=== PATIENT | female | born 1955 | race Two or more races ===

== ENCOUNTER 2020-04-29 15:54 | Observation (INO) | payer MEDICARE, OTHER ==
--- NOTE | 2020-04-29 16:12 | ED ---
General Adult HPI - General Chief complaint: GI Bleed Stated complaint: Vomiting blood Time Seen by Provider: 04/29/20 16:10 Source: patient Mode of arrival: ambulatory Limitations: no limitations - History of Present Illness Initial comments: Patient presents to the ED complaining of having about 3-4 bouts of hematemesis since yesterday. Patient also states that she has had upper abdominal pain since yesterday, and she states that she had a small amount of blood streaking in her stool today. Patient states that she has a history of cardiac stent placement, and she states that she takes medication for her stents, but she cannot recall the names. Patient cannot tell me if she takes any anticoagulant medication. Patient also admits to having a cholecystectomy and hysterectomy in the past. Patient states that she is currently visiting from out of town, and she states that her primary care provider is in [place]. Patient denies history of GI bleed, excessive NSAID or aspirin use, alcohol use/abuse, illicit drug use, trauma or injury, fever or chills, headache, chest pain, dyspnea, cough or cold symptoms palpitations, dizziness, back or flank pain, diarrhea or constipation, melena, dysuria/hematuria/urinary frequency/urinary symptoms, or any other symptoms or complaints. - Related Data Home Medications Medication Instructions Recorded Confirmed No Known Home Medications 04/29/20 04/29/20 Allergies Allergy/AdvReac Type Severity Reaction Status Date / Time No Known Allergies Allergy Verified 04/29/20 17:23 Review of Systems ROS Statement: Those systems with pertinent positive or pertinent negative responses have been documented in the HPI. ROS Other: All systems not noted in ROS Statement are negative. Past Medical History Past Medical History: Cancer, Liver Disease, Myocardial Infarction ([place]), Pneumonia, Seizure Disorder Additional Past Medical History / Comment(s): Cancer, ulcer, History of Any Multi-Drug Resistant Organisms: C-DIFF Past Surgical History: Adenoidectomy, Appendectomy, Bowel Resection, Cholecystectomy, Heart Catheterization With Stent, Tonsillectomy Past Psychological History: No Psychological Hx Reported Smoking Status: Former smoker Past Alcohol Use History: None Reported Past Drug Use History: None Reported General Exam Limitations: no limitations General appearance: alert, in no apparent distress Head exam: Present: atraumatic, normocephalic Eye exam: Present: normal appearance, EOMI ENT exam: Present: normal oropharynx, mucous membranes moist Neck exam: Present: other (Trachea is in midline) Respiratory exam: Present: normal lung sounds bilaterally. Absent: respiratory distress, wheezes, rales, rhonchi, stridor Cardiovascular Exam: Present: regular rate, normal rhythm, normal heart sounds, other (Normal radial pulses bilaterally) GI/Abdominal exam: Present: soft, normal bowel sounds, other (Mild epigastric tenderness). Absent: distended, guarding, rebound Rectal exam: Present: normal inspection, normal rectal tone, other (There was no significant stool in the rectal vault; ED RN Pretty Sanchez assisted with rectal exam). Absent: tenderness Extremities exam: Absent: pedal edema Back exam: Absent: CVA tenderness (R), CVA tenderness (L) Neurological exam: Present: alert, oriented X3. Absent: motor sensory deficit Psychiatric exam: Present: normal affect, normal mood Skin exam: Present: warm, dry, intact, normal color Course Vital Signs 04/29/20 04/29/20 15:58 18:27 Temperature 98.8 F Pulse Rate 90 79 Respiratory 16 16 Rate Blood Pressure 143/76 149/69 O2 Sat by Pulse 97 96 Oximetry - Reevaluation(s) Reevaluation #1: 04/29/20 18:33 Case, H&P, test results and ED management thus far were discussed with Dr. José Miguel valdez. He accepts hospital admission. He agrees with GI consultation. He has no further recommendations at this time. 04/29/20 18:41 Patient has not any vomiting while in the ED, but she continues to complain of having upper abdominal pain. Patient's abdomen remains soft and without any surgical signs on examination. Patient is aware of her test results, and she agrees with hospital admission at this time. Medical Decision Making - Medical Decision Making Patient has not had any vomiting/hematemesis while in the ED. Patient's has a soft abdominal exam. Patient's hemoglobin is WNL at 15.7, and she has hemodynamic stable. Patient is afebrile and without leukocytosis. Patient's rectal exam is guaiac negative. Still, given the patient's reported multiple bouts of hematemesis, and given CT finding of edema around the patient's duodenum, will admit the patient to the hospital for monitoring and GI evaluation. Dr. Rubi has accepted hospital admission. - Lab Data Result diagrams: 04/29/20 16:35 04/29/20 16:35 Lab Results 04/29/20 04/29/20 04/29/20 Range/Units 16:23 16:23 16:35 WBC 9.4 (3.8-10.6) k/uL RBC 4.68 (3.80-5.40) m/uL Hgb 15.7 (11.4-16.0) gm/dL Hct 45.8 (34.0-46.0) % MCV 97.9 (80.0-100.0) fL MCH 33.6 (25.0-35.0) pg MCHC 34.3 (31.0-37.0) g/dL RDW 12.8 (11.5-15.5) % Plt Count 290 (150-450) k/uL MPV 6.8 Neutrophils % 71 % Lymphocytes % 19 % Monocytes % 5 % Eosinophils % 2 % Basophils % 2 % Neutrophils # 6.7 (1.3-7.7) k/uL Lymphocytes # 1.8 (1.0-4.8) k/uL Monocytes # 0.5 (0-1.0) k/uL Eosinophils # 0.2 (0-0.7) k/uL Basophils # 0.2 (0-0.2) k/uL PT (9.0-12.0) sec INR (<1.2) APTT (22.0-30.0) sec Sodium (137-145) mmol/L Potassium (3.5-5.1) mmol/L Chloride (98-107) mmol/L Carbon Dioxide (22-30) mmol/L Anion Gap mmol/L BUN (7-17) mg/dL Creatinine (0.52-1.04) mg/dL Est GFR (CKD-EPI)AfAm (>60 ml/min/1.73 sqM) Est GFR (CKD-EPI)NonAf (>60 ml/min/1.73 sqM) Glucose (74-99) mg/dL Plasma Lactic Acid Sourav 1.9 (0.7-2.0) mmol/L Calcium (8.4-10.2) mg/dL Total Bilirubin (0.2-1.3) mg/dL AST (14-36) U/L ALT (4-34) U/L Alkaline Phosphatase (38-126) U/L Total Protein (6.3-8.2) g/dL Albumin (3.5-5.0) g/dL Lipase (23-300) U/L Stool Occult Blood Negative (Negative) 04/29/20 04/29/20 Range/Units 16:35 16:35 WBC (3.8-10.6) k/uL RBC (3.80-5.40) m/uL Hgb (11.4-16.0) gm/dL Hct (34.0-46.0) % MCV (80.0-100.0) fL MCH (25.0-35.0) pg MCHC (31.0-37.0) g/dL RDW (11.5-15.5) % Plt Count (150-450) k/uL MPV Neutrophils % % Lymphocytes % % Monocytes % % Eosinophils % % Basophils % % Neutrophils # (1.3-7.7) k/uL Lymphocytes # (1.0-4.8) k/uL Monocytes # (0-1.0) k/uL Eosinophils # (0-0.7) k/uL Basophils # (0-0.2) k/uL PT 13.3 H (9.0-12.0) sec INR 1.3 H (<1.2) APTT 25.0 (22.0-30.0) sec Sodium 132 L (137-145) mmol/L Potassium 3.4 L (3.5-5.1) mmol/L Chloride 97 L (98-107) mmol/L Carbon Dioxide 28 (22-30) mmol/L Anion Gap 7 mmol/L BUN 8 (7-17) mg/dL Creatinine 0.58 (0.52-1.04) mg/dL Est GFR (CKD-EPI)AfAm >90 (>60 ml/min/1.73 sqM) Est GFR (CKD-EPI)NonAf >90 (>60 ml/min/1.73 sqM) Glucose 105 H (74-99) mg/dL Plasma Lactic Acid Sourav (0.7-2.0) mmol/L Calcium 8.7 (8.4-10.2) mg/dL Total Bilirubin 1.4 H (0.2-1.3) mg/dL AST 89 H (14-36) U/L ALT 83 H (4-34) U/L Alkaline Phosphatase 108 (38-126) U/L Total Protein 7.7 (6.3-8.2) g/dL Albumin 3.7 (3.5-5.0) g/dL Lipase 138 (23-300) U/L Stool Occult Blood (Negative) - Radiology Data Radiology results: report reviewed (CT abdomen and pelvis with IV contrast: There is mild edema around the proximal duodenum that could relate to duodenitis, no free air, no bowel obstruction, there was colonic lipomatosis) Disposition Clinical Impression: Abdominal pain Narrative: Reported hematemesis Disposition: ADMITTED IP TO THIS [facility] Condition: Stable Is patient prescribed a controlled substance at d/c from ED?: No Referrals: Vijay Vasquez DO [Primary Care Provider] - 1-2 days Time of Disposition: 18:38
[2020-04-29] MEDS ORDERED: ONDANSETRON 4 MG/2 ML VIAL IVP STA (16:20)
[2020-04-29] MEDS ORDERED: PANTOPRAZOLE 40 MG/10 ML VIAL IVP STA (16:20)
[2020-04-29] MEDS ORDERED: SODIUM CHLORIDE 0.9% 1,000 ML IV STA (16:20)
[2020-04-29 16:44] LABS: Basophils # (A) 0.2 k/uL (0-0.2); Basophils % (A) 2 %; Eosinophils # (A) 0.2 k/uL (0-0.7); Eosinophils % (A) 2 %; HCT 45.8 % (34.0-46.0); HGB 15.7 gm/dL (11.4-16.0); Lymphocytes # (A) 1.8 k/uL (1.0-4.8); Lymphocytes % (A) 19 %; MCH 33.6 pg (25.0-35.0); MCHC 34.3 g/dL (31.0-37.0); MCV 97.9 fL (80.0-100.0); Mean Platelet Volume 6.8; Monocytes # (A) 0.5 k/uL (0-1.0); Monocytes % (A) 5 %; Neutrophils # (A) 6.7 k/uL (1.3-7.7); Neutrophils % (A) 71 %; Platelet Count 290 k/uL (150-450); RBC 4.68 m/uL (3.80-5.40); RDW 12.8 % (11.5-15.5); WBC 9.4 k/uL (3.8-10.6)
[2020-04-29 16:52] LABS: ALT 83 U/L (4-34); AST 89 U/L (14-36); African American GFR (CKD) >90 (>60 ml/min/1.73 sqM); Albumin 3.7 g/dL (3.5-5.0); Alkaline Phosphatase 108 U/L (38-126); Anion Gap 7 mmol/L; Blood Urea Nitrogen 8 mg/dL (7-17); Calcium 8.7 mg/dL (8.4-10.2); Carbon Dioxide 28 mmol/L (22-30); Chloride 97 mmol/L (98-107); Glucose 105 mg/dL (74-99); Lipase 138 U/L (23-300); Non-African American GFR(CKD) >90 (>60 ml/min/1.73 sqM); Potassium 3.4 mmol/L (3.5-5.1); Sodium 132 mmol/L (137-145); Total Bilirubin 1.4 mg/dL (0.2-1.3); Total Protein 7.7 g/dL (6.3-8.2)
[2020-04-29 16:54] LABS: INR 1.3 (<1.2); Prothrombin Time 13.3 sec (9.0-12.0)
--- NOTE | 2020-04-29 18:04 | CT ---
EXAMINATION TYPE: CT abdomen pelvis w con DATE OF EXAM: 04/29/2020 COMPARISON: None HISTORY: Abdominal pain x2 days CT DLP: 1157.6 mGycm Automated exposure control for dose reduction was used. CONTRAST: Performed with IV Contrast, patient injected with 100 mL of Isovue 300. Images obtained from the diaphragm to the floor the pelvis with IV contrast. Lung bases are clear. There is no pleural effusion. Heart size is normal. There is no pericardial eff usion. Liver spleen pancreas appear intact. There are clips from cholecystectomy. The bile ducts are not dil ated. There is some mild fat stranding around the proximal duodenum. There is no evidence of pancreat ic mass. There is no adrenal mass. Kidneys show satisfactory contrast opacification. There is no hydronephrosi s. Ureters are not dilated. There is no retroperitoneal adenopathy. Bladder distends smoothly. There is left hip nailing. There is no free fluid in the pelvis. Bladder is almost empty. There is no sign of a pelvic mass. The re is some fatty infiltration of the wall of the large bowel. The delayed images show normal renal ex cretion There is no evidence of free air. There is no evidence of bowel obstruction. There is no ascites. Cristiana endix is not seen. There is no sign of thickened appendix. The lumbar vertebra have normal alignment. There is slight depression of the superior endplate of L5 and also T12 vertebra of less than 10%. Facet joints are intact. The bony pelvis is intact. IMPRESSION: There is some mild edema around the proximal duodenum that could relate to duodenitis. No free air. N o bowel obstruction. There is colonic lipomatosis.
[2020-04-29] MEDS ORDERED: MORPHINE SULFATE 4 MG/ML SYRINGE IVP STA (18:20)
[2020-04-29] MEDS ORDERED: NALOXONE 0.4 MG/ML 1 ML VIAL IV PRN (18:38)
[2020-04-29] MEDS ORDERED: ONDANSETRON 4 MG/2 ML VIAL IVP PRN (18:38)
[2020-04-29] MEDS: SODIUM CHLORIDE 0.9% 1,000 ML IV SCH (18:49)
[2020-04-29] MEDS: MORPHINE SULFATE 4 MG/ML SYRINGE IV PRN (22:17)
[2020-04-29] MEDS: PANTOPRAZOLE 40 MG/10 ML VIAL IVP SCH (22:18)
--- NOTE | 2020-04-30 01:41 | P.HPIM ---
History of Present Illness H&P Date: 04/29/20 Chief Complaint: GI bleeding 64 year old female with history of CAD and stents about 10 years ago patient comes in after sudden onset of abd pain and hematemesis , she claims that she has had duran blood emesis, about 3-4 times today. associated with upper and mid abd pain across abd, 10/10 in severity felt like cramps, non radiating, no diarrhea or bloody bowel movements, she denies bleeding tendencies, or any history of GI bleeding, denies using ASA, Alcohol, NSAID, blood thinner, or any changes in her medications. she actually denies taking any medications at this time. she reports that she used to take Viread for hepatitis B, but she has stopped few months ago after she saw an Ad on TV warning of bleeding and abd pain . patient denies taking any herbs or over the counter meds. she is adventism and counts on God for well being. she otherwise denies any other URI symptoms, headache, fainting, any other bleeding, or urinary changes. denies palpitations, or SOB. in the ED, CT abd showed possible duodenitis, Hgb was wnl, elevated liver enzymes Review of Systems Pertinent positives as noted in HPI. All other systems were reviewed and are negative Past Medical History Past Medical History: Cancer, Liver Disease, Myocardial Infarction ([place]), Pneumonia, Seizure Disorder Additional Past Medical History / Comment(s): Cancer, ulcer, Last Myocardial Infarction Date:: 1997 History of Any Multi-Drug Resistant Organisms: C-DIFF Date of last positivie culture/infection: 2011 MDRO Source:: stool Past Surgical History: Adenoidectomy, Appendectomy, Bowel Resection, Cholecystectomy, Heart Catheterization With Stent, Tonsillectomy Past Anesthesia/Blood Transfusion Reactions: No Reported Reaction Date of Last Stent Placement:: 1997 Past Psychological History: No Psychological Hx Reported Smoking Status: Former smoker Past Alcohol Use History: None Reported Past Drug Use History: None Reported - Past Family History Family Family Medical History: No Reported History Medications and Allergies Home Medications Medication Instructions Recorded Confirmed Type No Known Home Medications 04/29/20 04/29/20 History Allergies Allergy/AdvReac Type Severity Reaction Status Date / Time No Known Allergies Allergy Verified 04/29/20 17:23 Physical Exam Vitals: Vital Signs Temp Pulse Resp BP Pulse Ox 04/29/20 18:27 79 16 149/69 96 04/29/20 15:58 98.8 F 90 16 143/76 97 Intake and Output 04/29/20 04/29/20 04/29/20 06:59 14:59 22:59 Other: Weight 86.273 kg Constitutional: No acute distress, conversant, pleasant Eyes: Anicteric sclerae, moist conjunctiva, Pupils equal round reactive to light ENMT: NC/AT Oropharynx clear, no erythema, or exudates Neck: Supple, FROM, no masses, or JVD No carotid bruits No thyromegaly Lungs: Clear to auscultation Clear to percussion Normal respiratory effort, no accessory muscle use Cardiovascular: Heart regular in rate and rhythm, No murmurs, gallops, or rubs No peripheral edema Abdominal: Soft Tenderness palpation of the epigastric region, no guarding, rebound or rigidity Abdomen moving with respiration Normoactive bowel sounds No hepatomegaly, No splenomegaly No palpable mass No abdominal wall hernia noted Skin: Normal temperature, tone, texture, turgor No induration No subcutaneous nodules No rash, lesions No ulcers Extremities: No digital cyanosis No clubbing Pedal pulses intact and symmetrical Radial pulses intact and symmetrical No calf tenderness Psychiatric: Alert and oriented to person, place and time Appropriate affect fair judgement Neuro Muscles Strength 5/5 in all 4 extremities Sensation to light touch grossly present throughout Cranial nerves II-XII grossly intact No focal sensory deficits Lymphatics: no palpable cervical or supraclavicular , or inguinal lymph nodes Results CBC & Chem 7: 04/29/20 16:35 04/29/20 16:35 Labs: Abnormal Lab Results - Last 24 Hours (Table) 04/29/20 04/29/20 Range/Units 16:35 16:35 PT 13.3 H (9.0-12.0) sec INR 1.3 H (<1.2) Sodium 132 L (137-145) mmol/L Potassium 3.4 L (3.5-5.1) mmol/L Chloride 97 L (98-107) mmol/L Glucose 105 H (74-99) mg/dL Total Bilirubin 1.4 H (0.2-1.3) mg/dL AST 89 H (14-36) U/L ALT 83 H (4-34) U/L Thrombosis Risk Factor Assmnt - Choose All That Apply Each Factor Represents 1 point: Obesity (BMI >25) Each Risk Factor Represents 2 Points: Age 61-74 years Thrombosis Risk Factor Assessment Total Risk Factor Score: 3 Thrombosis Risk Factor Assessment Level: Moderate Risk Assessment and Plan Assessment: GI bleeding with hematemesis and abdominal pain CT abdomen findings suggestive of possible duodenitis Patient will be kept nothing by mouth IV fluid hydration with normal saline Protonix IV twice a day Monitor hemoglobin and vital signs Fecal occult blood test was negative Elevated liver enzymes with history of hepatitis B and C Consider outpatient follow-up Mild hypokalemia and hyponatremia Replace potassium follow-up levels Check magnesium Continue normal saline follow-up sodium History of CAD patient currently not on any medications CODE STATUS:full code DVT prophylaxis: mechanical Discussed with: Patient, ER, RN Anticipated length of stay < than [address]: home A total of 65 minutes was spent on the care of this complex patient more than 50% of the time was spent in counseling and care coordination.
[2020-04-30] MEDS: POTASSIUM CHLORIDE 10 MEQ in WATER FOR INJECTION 1 100ML.BAG IVPB SCH ×2 (02:36→03:43)
[2020-04-30] MEDS: MORPHINE SULFATE 4 MG/ML SYRINGE IV PRN ×4 (03:39→20:21)
[2020-04-30 07:56] LABS: Basophils # (A) 0.1 k/uL (0-0.2); Basophils % (A) 1 %; Eosinophils # (A) 0.1 k/uL (0-0.7); Eosinophils % (A) 2 %; HCT 40.4 % (34.0-46.0); HGB 13.1 gm/dL (11.4-16.0); Lymphocytes # (A) 2.3 k/uL (1.0-4.8); Lymphocytes % (A) 27 %; MCH 32.7 pg (25.0-35.0); MCHC 32.4 g/dL (31.0-37.0); MCV 101.2 fL (80.0-100.0); Macrocytosis Slight; Monocytes # (A) 0.5 k/uL (0-1.0); Monocytes % (A) 5 %; Neutrophils # (A) 5.6 k/uL (1.3-7.7); Neutrophils % (A) 64 %; Platelet Count 238 k/uL (150-450); RBC 3.99 m/uL (3.80-5.40); RDW 13.5 % (11.5-15.5); WBC 8.8 k/uL (3.8-10.6)
[2020-04-30 08:09] LABS: ALT 76 U/L (4-34); AST 82 U/L (14-36); African American GFR (CKD) >90 (>60 ml/min/1.73 sqM); Albumin 2.8 g/dL (3.5-5.0); Alkaline Phosphatase 82 U/L (38-126); Anion Gap 4 mmol/L; Blood Urea Nitrogen 8 mg/dL (7-17); Calcium 8.1 mg/dL (8.4-10.2); Carbon Dioxide 27 mmol/L (22-30); Chloride 101 mmol/L (98-107); Glucose 79 mg/dL (74-99); Magnesium 1.7 mg/dL (1.6-2.3); Non-African American GFR(CKD) >90 (>60 ml/min/1.73 sqM); Potassium 3.8 mmol/L (3.5-5.1); Sodium 132 mmol/L (137-145); Total Bilirubin 1.2 mg/dL (0.2-1.3); Total Protein 5.9 g/dL (6.3-8.2)
[2020-04-30] MEDS: SODIUM CHLORIDE 0.9% 1,000 ML IV SCH ×3 (08:41→20:33)
[2020-04-30] MEDS: PANTOPRAZOLE 40 MG/10 ML VIAL IVP SCH ×2 (08:42→20:21)
--- NOTE | 2020-04-30 13:04 | CONS ---
CONSULTATION DATE OF DICTATION: April 30, 2020 REQUESTING PHYSICIAN: Dr. Vijay Vasquez. REASON FOR CONSULTATION: Hematemesis. HISTORY OF PRESENT ILLNESS: The patient is a 64-year-old white female who lives in [place], [place], was visiting her ex here and developed severe abdominal pain mostly in the periumbilical epigastric area followed by 4 episodes of hematemesis. Following that, the patient came to the emergency room and subsequently admitted to the hospital. As per the nursing staff, she did not have any active bleeding since being in the hospital. Initial hemoglobin was 15 g/dL. Patient states that she was diagnosed with chronic hepatitis B and hepatitis C infection several years ago from a blood transfusion she got at the time of childbirth many years ago. She was seeing a distribution center supervisor in [facility] and apparently was treated for chronic hepatitis C with interferon in 1997. She was also diagnosed with hepatitis B and has been on Tenofovir for the last 1 year, but she quit taking it about 6 months ago. In the ER, she had a CT of the abdomen and pelvis done that showed some thickening of the duodenal bulb, otherwise unremarkable. PAST MEDICAL HISTORY: Significant for chronic hepatitis C infection on Tenofovir for the last one year but she quit taking 6 months ago. Remote history of chronic hepatitis C infection, coronary artery disease, OR in the past. Seizure disorder. MEDICATIONS: Medications at home none. ALLERGIES: No known drug allergies. SOCIAL HISTORY: No smoking. No alcohol use. PAST SURGICAL HISTORY: Adenoidectomy, appendectomy, bowel resection, cholecystectomy, cardiac catheterization. REVIEW OF SYSTEMS: CARDIOPULMONARY: No chest pain or shortness of breath. No dysuria or hematuria. MUSCULOSKELETAL unremarkable. Skin unremarkable. Endocrine unremarkable. PSYCHIATRIC: Unremarkable. NEUROLOGY: Unremarkable. ENT/VISION: Unremarkable. CONSTITUTIONAL: No recent weight loss. No fever, chills, night sweats. PHYSICAL EXAMINATION: Blood pressure is 111/58, pulse rate 82 and afebrile. HEENT examination unremarkable. Conjunctivae pink. Sclerae anicteric. Oral cavity no lesions. Neck: No JVD or lymph node enlargement. Chest was clear to auscultation. HEART: Regular rate and rhythm. ABDOMEN: Soft. Bowel sounds are positive. No organomegaly. Mild tenderness in the periumbilical and epigastric area. EXTREMITIES: No pedal edema. Neuro: She is alert and oriented x3. No focal deficits. LABS: WBC 9.4, hemoglobin 15.7, platelets normal. INR is 1.3. T bilirubin 1.4, AST 89, ALT 83, alkaline phosphatase is normal. Stool occult blood is negative. Today hemoglobin is 13.1. IMPRESSION: 1. Acute upper gastrointestinal bleed with 3 episodes of hematemesis yesterday. The patient with history of chronic hepatitis C and chronic hepatitis B infection and according to her, she was treated for hep C in 1997 and appears that she had a sustained virological response. In regards to the hepatitis B infection, she was started on Tenofovir for about a year ago by distribution center supervisor in [facility] but she stopped taking about 6 months ago. It is unclear whether she has underlying cirrhosis of the liver or not at the current time. The recent CT scan did not show any evidence of significant liver disease on the imaging studies. Her hemoglobin is stable at 13.5 g/dL and no further episodes of hematemesis since being in the hospital and she remains hemodynamically stable. 2. Chronic hep C infection/elevated LFTs. 3. History of coronary artery disease. RECOMMENDATIONS: 1. Continue Protonix 40 mg twice daily. 2. Start on clear liquid diet. 3. Proceed with an upper endoscopy tomorrow. Discussed with the patient, risks, benefits and complications and she is agreeable to it. Thank you for this consultation. MMCARLINEL / IJN: [id number] /
--- NOTE | 2020-04-30 15:01 | P.PN ---
Subjective Progress Note Date: 04/30/20 Principal diagnosis: Hematemesis Patient has not noticed any current episodes of hematemesis or abdominal pain since she came into the hospital. No nausea or vomiting. No fevers or chills, no chest pain or shortness of breath. Of note patient has been scratching her eyes to take out some white foreign bodies that I'm not sure exist. Objective - Vital Signs Vital signs: Vital Signs Temp 98.2 F 04/30/20 08:43 Pulse 69 04/30/20 09:00 Resp 16 04/30/20 09:00 BP 111/58 04/30/20 08:43 Pulse Ox 96 04/30/20 08:43 Intake & Output 04/29/20 04/30/20 04/30/20 18:59 06:59 18:59 Weight 86.273 kg 86.273 kg Other: Voiding Method Toilet Toilet # Voids 2 - Exam Constitutional: No acute distress, conversant, pleasant Eyes:Anicteric sclerae, flushed eyes and lids with significant erythema in the inner aspect of the lids. moist conjunctiva, no lid-lag, PERRLA, ENMT: Oropharynx clear, no erythema, exudates Neck: Supple, FROM, no masses, or JVD, No carotid bruits, No thyromegaly Lungs: Clear to auscultation, Clear to percussion, Normal respiratory effort, no accessory muscle use Cardiovascular: Heart regular in rate and rhythm, No murmurs, gallops, or rubs, No peripheral edema Abdominal: Soft, Nontender, no guarding, rebound or rigidity, Normoactive bowel sounds, No hepatomegaly, No splenomegaly, No palpable mass Skin: Normal temperature, tone, texture, turgor, no induration, No subcutaneous nodules, No rash, lesions, No ulcers Extremities: No digital cyanosis, No clubbing, Pedal pulses intact and symmetrical, Radial pulses intact and symmetrical, No calf tenderness Psychiatric: Alert and oriented to person, place and time, appropriate affect, intact judgement Neuro: Muscles Strength 5/5 in all 4 extremities, Sensation to light touch grossly present throughout, Cranial nerves II-XII grossly intact, no focal s ensory deficits - Labs CBC & Chem 7: 04/30/20 07:28 04/30/20 07:28 Labs: Abnormal Lab Results - Last 24 Hours (Table) 04/29/20 04/29/20 04/30/20 Range/Units 16:35 16:35 07:28 MCV 101.2 H (80.0-100.0) fL PT 13.3 H (9.0-12.0) sec INR 1.3 H (<1.2) Sodium 132 L (137-145) mmol/L Potassium 3.4 L (3.5-5.1) mmol/L Chloride 97 L (98-107) mmol/L Creatinine (0.52-1.04) mg/dL Glucose 105 H (74-99) mg/dL Calcium (8.4-10.2) mg/dL Total Bilirubin 1.4 H (0.2-1.3) mg/dL AST 89 H (14-36) U/L ALT 83 H (4-34) U/L Total Protein (6.3-8.2) g/dL Albumin (3.5-5.0) g/dL 04/30/20 Range/Units 07:28 MCV (80.0-100.0) fL PT (9.0-12.0) sec INR (<1.2) Sodium 132 L (137-145) mmol/L Potassium (3.5-5.1) mmol/L Chloride (98-107) mmol/L Creatinine 0.51 L (0.52-1.04) mg/dL Glucose (74-99) mg/dL Calcium 8.1 L (8.4-10.2) mg/dL Total Bilirubin (0.2-1.3) mg/dL AST 82 H (14-36) U/L ALT 76 H (4-34) U/L Total Protein 5.9 L (6.3-8.2) g/dL Albumin 2.8 L (3.5-5.0) g/dL Assessment and Plan Plan: GI bleeding with hematemesis and abdominal pain with negative fecal occult blood test was negative CT abdomen findings suggestive of possible duodenitis Nothing by mouth, plan for EGD in a.m. IV fluid hydration with normal saline Protonix IV twice a day Hemoglobin stable Elevated liver enzymes with history of hepatitis B and C Consider outpatient follow-up Mild hypokalemia and hyponatremia Replaced potassium Hyponatremia likely chronic Continue normal saline follow-up sodium Conjunctivitis Likely secondary to repetitive scratching Artificial tears Insomnia Melatonin when necessary History of CAD patient currently not on any medications DVT prophylaxis: mechanical Discussed with: Patient, RN Anticipated discharge place: home Anticipated discharge date: in am if EGD ok
[2020-04-30] MEDS ORDERED: ARTIFICIAL TEARS-HYPROMELLOSE DROPS 15 ML BTL BOTH EYES PRN (15:02)
[2020-04-30] MEDS ORDERED: MELATONIN 5 MG TABLET PO SCH (21:00)
[2020-05-01 03:43] VITALS: RESP 16
[2020-05-01] MEDS: SODIUM CHLORIDE 0.9% 1,000 ML IV SCH (04:25)
[2020-05-01 08:00] VITALS: TEMP 97
[2020-05-01] MEDS: MORPHINE SULFATE 4 MG/ML SYRINGE IV PRN (08:00)
[2020-05-01] MEDS: PANTOPRAZOLE 40 MG/10 ML VIAL IVP SCH (08:00)
[2020-05-01 08:05] LABS: HCT 39.7 % (34.0-46.0); MCH 33.9 pg (25.0-35.0); MCHC 32.7 g/dL (31.0-37.0); MCV 103.7 fL (80.0-100.0); Macrocytosis Slight; Mean Platelet Volume 7.1; Platelet Count 198 k/uL (150-450); RBC 3.82 m/uL (3.80-5.40); WBC 6.6 k/uL (3.8-10.6)
[2020-05-01 08:21] LABS: ALT 77 U/L (4-34); AST 88 U/L (14-36); African American GFR (CKD) >90 (>60 ml/min/1.73 sqM); Albumin 2.7 g/dL (3.5-5.0); Alkaline Phosphatase 75 U/L (38-126); Anion Gap 1 mmol/L; Blood Urea Nitrogen 6 mg/dL (7-17); Carbon Dioxide 27 mmol/L (22-30); Chloride 104 mmol/L (98-107); Glucose 98 mg/dL (74-99); Non-African American GFR(CKD) >90 (>60 ml/min/1.73 sqM); Potassium 3.6 mmol/L (3.5-5.1); Sodium 132 mmol/L (137-145); Total Bilirubin 1.1 mg/dL (0.2-1.3); Total Protein 5.9 g/dL (6.3-8.2)
[2020-05-01] MEDS ORDERED: LIDOCAINE 1% INJ 10MG/ML (20 ML MDV) ONE (14:48)
[2020-05-01] MEDS ORDERED: PROPOFOL 10 MG/ML 20 ML VIAL IV ONE (14:48)
[2020-05-01] MEDS ORDERED: IV FLUID CONTINUATION 1,000 ML IV ONE (14:52)
--- NOTE | 2020-05-01 15:22 | P.PN ---
Subjective Progress Note Date: 05/01/20 Principal diagnosis: Hematemesis History of presenting illness Patient is a 64-year-old female with a past medical history of CAD with stents, chronic hepatitis C and hepatitis B. She presented to [facility] on 04/29/20 with a chief complaint of abdominal pain and vomiting bright red blood. Patient reports she had sudden onset abdominal pain to periumbilic and epigastric region beginning 04/28/20 which was soon after followed by 4 episodes of hematemesis. Patient is not on anticoagulants he denies history of GI bleed, gastric ulcers, known esophageal varices, NSAID or aspirin use, or alcohol use/abuse. Patient reports she was treated for her hepatitis C with interferon in 1997 and was on tenofovir for treatment of her hepatitis B but states she chose to stop taking this approximately 6 months ago. Patient has not had any further episodes of hematemesis since arrival to facility. 05/01/20: Hemoglobin has been consistently stable since admission, but did show a drop of 2.7, with an initial hemoglobin of 15.7 and morning labs reveal hemoglobin now 13.0 possibly secondary to dilution as patient has been receiving 0.9% normal saline at 125 mL's per hour. Patient with continued transaminitis with AST 88 and ALT 77, stable. Patient was seen and evaluated at the bedside and reports that she continues to have abdominal pain and was tender throughout epigastric and periumbilical regions. She denies having any further episodes of hematemesis. She is scheduled for EGD this afternoon. Likely plan for di scharge tomorrow morning pending EGD results and further GI recommendations. At this time we will continue with gentle hydration with 0.9% normal saline at 125 miles per hour along with IV Protonix 40 mg IVP twice daily. Patient may advance diet from nothing by mouth to cardiac diet once cleared by GI. Physical exam General: non toxic, no distress, appears at stated age Derm: warm, dry Head: atraumatic, normocephalic, symmetric Eyes: EOMI, no lid lag, anicteric sclera Mouth: no lip lesion, mucus membranes moist Cardiovascular: S1S2 reg, no murmur, positive posterior tibial pulse bilaterally, no lower extremity edema, Cap Refill less than 2 seconds. Lungs: CTA bilateral, no rhonchi, no rales, no wheezing and no accessory muscle use Abdominal: soft, nontender to palpation, no guarding, no appreciable organomegaly Ext: no gross muscle atrophy, no edema, no contractures Neuro: CN II-XII grossly intact, no focal neuro deficits Psych: Alert, oriented, appropriate affect Plan of care: GI bleed, Hematemesis -Patient presented with a chief complaint of abdominal pain and vomiting bright red blood. Patient reports she had sudden onset abdominal pain to periumbilic and epigastric region beginning 04/28/20 which was soon after followed by 4 episodes of hematemesis. Patient has not had any further episodes of hematemesis since arrival to facility. -GI is on board and awaiting further recommendations. -CT abdomen and pelvis suggestive of likely duodenitis. -Hemoglobin has been consistently stable since admission, but did show a drop of 2.7, with an initial hemoglobin of 15.7 and morning labs reveal hemoglobin now 13.0 possibly secondary to dilution as patient has been receiving 0.9% normal saline at 125 mL's per hour. -Protonix 40 mg IVP twice daily. -Continue gentle hydration with 0.9% normal saline at 125 miles per hour. -Patient to remain nothing by mouth until cleared by GI. -EGD this afternoon, possible discharge pending results and further recommendations by GI. Mild hypokalemia, resolved -Initial potassium 3.4 patient received replacements repeat potassium has been 3.8 and 3.6. Conjunctivitis -Likely secondary to repetitive scratching -Artificial tears Mild hyponatremia -Sodium 132, stable since arrival. -Continue with gentle hydration with 0.9% normal saline at 125 mL's per hour. Insomnia -Melatonin nightly Transaminitis, chronic stable. -Patient with continued transaminitis with AST 88 and ALT 77, stable. -Transaminitis likely secondary to patient's history with hepatitis C and hepatitis B. -Consider outpatient follow-up with hepatologists. History of CAD with stents -DVT prophylaxis with SCDs -Patient not on any oral medications, she was encouraged to follow up outpatient with PCP for continued long-term monitoring management. DVT prophylaxis: Mechanical Discussed with: Patient, RN Anticipated discharge place: home Anticipated discharge date: tomorrow morning pending EGD results and further GI recommendations. Objective - Vital Signs Vital signs: Vital Signs Temp 97.0 F L 05/01/20 07:57 Pulse 72 05/01/20 07:57 Resp 16 05/01/20 07:57 BP 131/60 05/01/20 07:57 Pulse Ox 98 05/01/20 07:57 Intake & Output 04/30/20 05/01/20 05/01/20 18:59 06:59 18:59 Intake Total 600 Balance 600 Intake: Oral 600 Other: Voiding Method Toilet Toilet Toilet # Voids 1 2 1 - Labs CBC & Chem 7: 05/01/20 07:38 05/01/20 07:38 Labs: Abnormal Lab Results - Last 24 Hours (Table) 05/01/20 05/01/20 Range/Units 07:38 07:38 MCV 103.7 H (80.0-100.0) fL Sodium 132 L (137-145) mmol/L BUN 6 L (7-17) mg/dL Creatinine 0.47 L (0.52-1.04) mg/dL Calcium 8.0 L (8.4-10.2) mg/dL AST 88 H (14-36) U/L ALT 77 H (4-34) U/L Total Protein 5.9 L (6.3-8.2) g/dL Albumin 2.7 L (3.5-5.0) g/dL
[2020-05-01 15:25] VITALS: PULSE 75
--- NOTE | 2020-05-01 15:34 | P.PCN ---
Date of Procedure: 05/01/20 Description of Procedure: BRIEF HISTORY: Patient is a 64-year-old female with multiple medical comorbidities including a history of chronic hepatitis C for which she reports treatment with antiviral therapy and chronic hepatitis B for which she reports previously taking therapy but having discontinued over the past 6 months who presented to the hospital with reports of hematemesis. She reports multiple episodes of vomiting of bright red blood. Currently she is seen, with hemoglobin remaining stable at 13 from 13.1 previously. No further episodes today. PROCEDURE PERFORMED: Esophagogastroduodenoscopy with biopsy. PREOPERATIVE DIAGNOSIS: Hematemesis, GI bleed. ESTIMATED BLOOD LOSS: Minimal. IV sedation per anesthesia. PROCEDURE: After informed consent was obtained, the patient was brought into the endoscopy unit. IV sedation was administered by Anesthesia under continuous monitoring. Initially the Olympus GIF-190 video endoscope was inserted into the mouth. Esophagus intubated without any difficulty. It was gradually advanced into the stomach and duodenum and carefully examined. The bulb and the second part of the duodenum were examined with a normal-appearing second portion of the duodenum. There was a 1 cm cratered duodenal bulb ulcer without active bleeding or stigmata of bleeding there was some inflammation around the ulcers suggestive of mild duodenitis with biopsies of the ulcer edge taken. The scope at this time was withdrawn to the stomach, adequately insufflated with air, and upon careful examination, mucosa of the antrum, body, cardia and the fundus appeared normal, with biopsies taken of the antrum and body to rule out Helicobacter pylori infection. The scope was then withdrawn into the esophagus. The GE junction was located at 36 cm from the incisors, with a small hiatal hernia noted. The esophagus appeared normal. There were no erosions or ulcerations seen and the patient tolerated the procedure well. IMPRESSION: 1. Cratered nonbleeding duodenal bulb ulcer without high-risk stigmata for bleeding, biopsied. 2. Small hiatal hernia. 3. Biopsies of the antrum and body. RECOMMENDATIONS: The findings of this examination were discussed with the patient. Okay to resume full liquid diet. Avoid NSAIDs. Continue Protonix 40 mg twice daily. Continue to monitor hemoglobin and hematocrit and transfuse as needed.
--- NOTE | 2020-05-01 16:09 | P.DS ---
Providers Date of admission: 04/29/20 18:39 Expected date of discharge: 05/01/20 Attending physician: Audelia Rubi MD Consults: 04/29/20 18:40 Consult Physician Urgent Consulting Provider: Elaine Pereira Consult Reason/Comments: Reported hematemesis, abdominal pain Do you want consulting provider notified?: Yes Primary care physician: [facility] Hospital Course: Hospital Course: Patient is a 64-year-old female whom presented to [facility] on 04/29/20 with a chief complaint of abdominal pain and 4 episodes of vomiting bright red blood. Pt had a CT abdomen and pelvis which was suggestive of duodenitis, Hgb was stable at 15.7. She was admitted to Observation unit for GI bleed, placed on IV Protonix 40 mg twice a day and underwent an evaluation by gastroenterology followed by an EGD. Pt's Hgb remained stable throughout admission with Hgb upon discharge 13.0. GI bleed, Hematemesis, resolved -Pt did not have any further episodes of hematemesis since arrival to facility. EGD revealed patient to have a cratered nonbleeding duodenal bulb ulcer without high risk stigmata for bleeding. Biopsies were taken. Pt was cleared by GI to begin full liquid diet and discharge home. -Protonix 40 mg by mouth twice daily -Follow up outpatient with GI next week Mild hypokalemia, resolved -Initial potassium 3.4 patient received replacements repeat potassium has been 3.8 and 3.6. Conjunctivitis, allergic -Continue artificial tears Mild hyponatremia Insomnia -Melatonin nightly Transaminitis, chronic stable. -AST 88 and ALT 77, stable. -Transaminitis likely secondary to patient's history with hepatitis C and hepatitis B. -Follow up outpatient with hepatologists. History of CAD with stents -Patient not on any oral medications, she was encouraged to follow up outpatient with PCP for continued long-term monitoring and management. Assessment: The patient is a 64-year-old female with a past medical history of CAD with stents, chronic hepatitis C and hepatitis B. Patient evaluated at bedside : VSS. Pt denies any complaints at this time. She returned from EGD. Denies headache, lightheadedness, dizziness, chest pain, or shortness of breath. Discussed discharge with patient and plan of care. Patient to be discharged home on full liquid diet and slowly progress to soft diet followed by a heart healthy diet. She will be given prescription for Protonix 40 mg by mouth twice daily and instructed to follow-up outpatient with gastroenterology next week. Patient instructed to avoid NSAIDs and alcohol. Physical Exam General: non toxic, no distress, appears at stated age Derm: warm, dry Head: atraumatic, normocephalic, symmetric Eyes: EOMI, no lid lag, anicteric sclera, redness to bilateral sclera and surrounding eyes secondary to pt persistently rubbing. Mouth: no lip lesion, mucus membranes moist Cardiovascular: S1S2 reg, no murmur, positive posterior tibial pulse bilateral, Lungs: CTA bilateral, no rhonchi, no rales , no accessory muscle use Abdominal: soft, tenderness to palpation mid epigastric and periumbilical regions, no guarding, no appreciable organomegaly Ext: no gross muscle atrophy, no edema, no contractures Neuro: CN II-XI grossly intact, no focal neuro deficits Psych: Alert, oriented, appropriate affect A total of 35 minutes was spent preparing this complex discharge summary and completing discharge teaching. Patient Condition at Discharge: Stable Plan - Discharge Summary Discharge Rx Participant: No New Discharge Prescriptions: No Action No Known Home Medications Discharge Medication List No Known Home Medications 04/29/20 [History] Follow up Appointment(s)/Referral(s): Vijay Vasquez DO [Primary Care Provider] - 1-2 days
[2020-05-01 16:32] VITALS: BP 136/62
== END 2020-05-01 16:50 | disposition home or self-care (01) ==
LOC: EC 15:54 → 1SOBS 18:39
PROVIDERS: ADMIT Internal Medicine; ATTEND Internal Medicine
DX: K26.4 Chronic or unspecified duodenal ulcer with hemorrhage (principal); K29.81 Duodenitis with bleeding; E87.6 Hypokalemia; E87.1 Hypo-osmolality and hyponatremia; K29.51 Unspecified chronic gastritis with bleeding; B18.1 Chronic viral hepatitis B without delta-agent; Z91.14 Patient's other noncompliance with medication regimen; G47.00 Insomnia, unspecified; H10.13 Acute atopic conjunctivitis, bilateral; K44.9 Diaphragmatic hernia without obstruction or gangrene; Z16.24 Resistance to multiple antibiotics; G40.909 Epilepsy, unspecified, not intractable, without status epilepticus; I25.10 Atherosclerotic heart disease of native coronary artery without angina pectoris; R74.8 Abnormal levels of other serum enzymes; E66.9 Obesity, unspecified; Z68.33 Body mass index [BMI] 33.0-33.9, adult; Z95.5 Presence of coronary angioplasty implant and graft; Z90.49 Acquired absence of other specified parts of digestive tract; I25.2 Old myocardial infarction; Z87.01 Personal history of pneumonia (recurrent); Z87.891 Personal history of nicotine dependence; Z86.19 Personal history of other infectious and parasitic diseases
CPT/HCPCS: 96365; 96366; 96376 ×3; 96361; 96375; 99285; 36415; 88305; 80053 ×3; 83605; 83690; 83735; 85025 ×2; 85027; 85610; 85730; 82272; 88342; 74177; 43239; G0378 ×3; J2270 ×3; J2405; J2001; J3480; J2704; C9113 ×3; Q9967

== ENCOUNTER 2020-05-01 19:21 | Emergency (ER) | payer OTHER ==
--- NOTE | 2020-05-01 19:35 | ED ---
Recheck HPI - General Chief Complaint: Recheck/Abnormal Lab/Rx Stated Complaint: ABD pain Time Seen by Provider: 05/01/20 19:35 Source: patient Mode of arrival: ambulatory Limitations: no limitations - History of Present Illness Initial Comments: 64-year-old female with history of hepatitis B and C presenting to the emergency department with a chief complaint of abdominal pain. Patient reports she was admitted 2 days ago and underwent a recent EGD where she was found to have an ulcer. Patient reports she was discharged from the hospital for today and she walked right back to the emergency department because she feels that her abdominal pain is still persistent. She doesn't have any nausea or vomiting. Patient also reports her eyes are red with some "yellow goop". Patient reports she has been rubbing them in order to remove it. She states this issue was not addressed. She denies any chest pain shortness of breath. Denies a nausea vomi ting diarrhea. Denies drinking alcohol. - Related Data Previous Rx's Medication Instructions Recorded Ondansetron Odt [Zofran Odt] 4 mg PO Q8HR PRN #20 tab 05/01/20 Pantoprazole Sodium [Protonix] 40 mg PO BID #40 tablet. 05/01/20 traMADol HCl [Ultram] 50 mg PO Q6H PRN #12 tab 05/01/20 Allergies Allergy/AdvReac Type Severity Reaction Status Date / Time No Known Allergies Allergy Verified 05/01/20 21:11 Review of Systems ROS Statement: Those systems with pertinent positive or pertinent negative responses have been documented in the HPI. ROS Other: All systems not noted in ROS Statement are negative. Past Medical History Past Medical History: Cancer, Liver Disease, Myocardial Infarction ([place]), Pneumonia, Seizure Disorder Additional Past Medical History / Comment(s): Cancer, ulcer, Last Myocardial Infarction Date:: 1997 History of Any Multi-Drug Resistant Organisms: C-DIFF Date of last positivie culture/infection: 2011 MDRO Source:: stool Past Surgical History: Adenoidectomy, Appendectomy, Bowel Resection, Cholecystectomy, Heart Catheterization With Stent, Tonsillectomy Past Anesthesia/Blood Transfusion Reactions: No Reported Reaction Date of Last Stent Placement:: 1997 Past Psychological History: No Psychological Hx Reported Smoking Status: Former smoker Past Alcohol Use History: None Reported Past Drug Use History: None Reported - Past Family History Family Family Medical History: No Reported History General Exam Limitations: no limitations General appearance: alert, in no apparent distress, obese Head exam: Present: atraumatic, normocephalic, normal inspection Eye exam: Present: normal appearance, PERRL, EOMI Pupils: Present: normal accommodation ENT exam: Present: normal exam, normal oropharynx, mucous membranes moist, TM's normal bilaterally, normal external ear exam Neck exam: Present: normal inspection, full ROM. Absent: tenderness Respiratory exam: Present: normal lung sounds bilaterally. Absent: respiratory distress, wheezes, rales, rhonchi, stridor Cardiovascular Exam: Present: regular rate, normal rhythm, normal heart sounds. Absent: systolic murmur, diastolic murmur GI/Abdominal exam: Present: soft, tenderness (Epigastric abdominal pain). Absent: distended, guarding, rebound, rigid Extremities exam: Present: normal inspection, full ROM, normal capillary refill. Absent: tenderness, pedal edema, joint swelling Back exam: Present: normal inspection, full ROM. Absent: tenderness, CVA tenderness (R), CVA tenderness (L) Neurological exam: Present: alert, oriented X3 Psychiatric exam: Present: normal affect, normal mood Skin exam: Present: warm, dry, intact, normal color Course Vital Signs 05/01/20 05/01/20 05/01/20 19:23 21:17 22:29 Temperature 98.3 F 97.9 F Pulse Rate 80 83 77 Respiratory 16 18 16 Rate Blood Pressure 143/68 130/88 137/76 O2 Sat by Pulse 98 99 96 Oximetry Medical Decision Making - Medical Decision Making 64-year-old female presenting to emergency Department with chief complaint abdominal pain. On physical examination, patient did have some epigastric abdominal pain. Patient left the observation unit and walk to the ER desk to be admitted. I reviewed the notes from the observation unit and reveal that the patient was angry at the staff her being discharged and was cursing at them. Patient was escorted by security. Patient did not sign any discharge papers. Patient had an upper GI scope performed by that revealed a nonbleeding duodenal also without high risk for bleeding. His was biopsied. Patient was advised to continue taking Protonix 40 mg twice a day. When I spoke with the patient, she was tearful and frustrated. She also had bilateral conjunctival injections. I will treat her with erythromycin ophthalmic ointmen t. I advised her to avoid taking any NSAIDs. I also gave the patient a prescription for 40 tablets of Protonix 40 mg. Also give her a prescription for Zofran when necessary. Patient was also given 12 tablets of Ultram when necessary for pain. She was advised to [facility]up with [facility] an [facility]. CBC unremarkable. Hemoglobin within normal limits. CMP reveals mild transaminitis although this is the patient's baseline considering she has hepatitis B and C. Patient was also given IV fluids and analgesia in the emergency department. Narcotic form signed. On reevaluation, patient reported improvement in symptoms and feels comfortable going home. Strict return parameters were thoroughly discussed the patient is understanding and agreeable. Case discussed with physician. - Lab Data Result diagrams: 05/01/20 20:32 05/01/20 20:32 Lab Results 05/01/20 05/01/20 Range/Units 20:32 20:32 WBC 6.9 (3.8-10.6) k/uL RBC 3.94 (3.80-5.40) m/uL Hgb 13.6 (11.4-16.0) gm/dL Hct 39.3 (34.0-46.0) % MCV 99.7 (80.0-100.0) fL MCH 34.4 (25.0-35.0) pg MCHC 34.5 (31.0-37.0) g/dL RDW 13.1 (11.5-15.5) % Plt Count 230 (150-450) k/uL MPV 7.0 Neutrophils % 71 % Lymphocytes % 21 % Monocytes % 3 % Eosinophils % 2 % Basophils % 1 % Neutrophils # 4.9 (1.3-7.7) k/uL Lymphocytes # 1.4 (1.0-4.8) k/uL Monocytes # 0.2 (0-1.0) k/uL Eosinophils # 0.2 (0-0.7) k/uL Basophils # 0.1 (0-0.2) k/uL Sodium 133 L (137-145) mmol/L Potassium 3.6 (3.5-5.1) mmol/L Chloride 106 (98-107) mmol/L Carbon Dioxide 24 (22-30) mmol/L Anion Gap 3 mmol/L BUN 7 (7-17) mg/dL Creatinine 0.46 L (0.52-1.04) mg/dL Est GFR (CKD-EPI)AfAm >90 (>60 ml/min/1.73 sqM) Est GFR (CKD-EPI)NonAf >90 (>60 ml/min/1.73 sqM) Glucose 113 H (74-99) mg/dL Calcium 8.3 L (8.4-10.2) mg/dL Total Bilirubin 1.0 (0.2-1.3) mg/dL AST 93 H (14-36) U/L ALT 83 H (4-34) U/L Alkaline Phosphatase 90 (38-126) U/L Total Protein 6.3 (6.3-8.2) g/dL Albumin 2.9 L (3.5-5.0) g/dL Lipase 196 (23-300) U/L Disposition Clinical Impression: Abdominal pain Disposition: HOME SELF-CARE Condition: Stable Instructions (If sedation given, give patient instructions): Abdominal Pain (ED) Additional Instructions: Apply erythromycin eye ointment 4 times per day on both eyes for 7 days. Follow with her primary care physician. Take prescribed medication as directed. Return to emergency department if symptoms worsen. Prescriptions: Pantoprazole Sodium [Protonix] 40 mg PO BID #40 tablet. traMADol HCl [Ultram] 50 mg PO Q6H PRN #12 tab PRN Reason: Pain Ondansetron Odt [Zofran Odt] 4 mg PO Q8HR PRN #20 tab PRN Reason: Nausea Is patient prescribed a controlled substance at d/c from ED?: No Referrals: Vijay Vasquez DO [Primary Care Provider] - 1-2 days Time of Disposition: 22:47
[2020-05-01] MEDS ORDERED: MORPHINE SULFATE 4 MG/ML SYRINGE IV STA (19:47)
[2020-05-01] MEDS ORDERED: SODIUM CHLORIDE 0.9% 1,000 ML IV STA (19:47)
[2020-05-01 20:40] LABS: Basophils # (A) 0.1 k/uL (0-0.2); Basophils % (A) 1 %; Eosinophils # (A) 0.2 k/uL (0-0.7); Eosinophils % (A) 2 %; HCT 39.3 % (34.0-46.0); HGB 13.6 gm/dL (11.4-16.0); Lymphocytes # (A) 1.4 k/uL (1.0-4.8); Lymphocytes % (A) 21 %; MCH 34.4 pg (25.0-35.0); MCHC 34.5 g/dL (31.0-37.0); MCV 99.7 fL (80.0-100.0); Monocytes # (A) 0.2 k/uL (0-1.0); Monocytes % (A) 3 %; Neutrophils # (A) 4.9 k/uL (1.3-7.7); Neutrophils % (A) 71 %; Platelet Count 230 k/uL (150-450); RBC 3.94 m/uL (3.80-5.40); RDW 13.1 % (11.5-15.5); WBC 6.9 k/uL (3.8-10.6)
[2020-05-01 20:55] LABS: ALT 83 U/L (4-34); AST 93 U/L (14-36); African American GFR (CKD) >90 (>60 ml/min/1.73 sqM); Albumin 2.9 g/dL (3.5-5.0); Alkaline Phosphatase 90 U/L (38-126); Anion Gap 3 mmol/L; Blood Urea Nitrogen 7 mg/dL (7-17); Calcium 8.3 mg/dL (8.4-10.2); Carbon Dioxide 24 mmol/L (22-30); Chloride 106 mmol/L (98-107); Glucose 113 mg/dL (74-99); Lipase 196 U/L (23-300); Non-African American GFR(CKD) >90 (>60 ml/min/1.73 sqM); Potassium 3.6 mmol/L (3.5-5.1); Sodium 133 mmol/L (137-145); Total Protein 6.3 g/dL (6.3-8.2)
[2020-05-01] MEDS ORDERED: HYDROmorphone 0.5 MG/0.5 ML SYRINGE IVP STA ×2 (21:20→22:55)
[2020-05-01 22:31] VITALS: BP 137/76; PULSE 77; RESP 16; TEMP 97.9
[2020-05-01] MEDS ORDERED: ERYTHROMYCIN 5 MG/GM OPHTH OINT 1 GM TUBE BOTH EYES STA (22:44)
== END 2020-05-01 23:15 | disposition home or self-care (01) ==
LOC: EC 19:21
DX: R10.13 Epigastric pain (principal); R74.01 Elevation of levels of liver transaminase levels; Z90.49 Acquired absence of other specified parts of digestive tract; Z95.5 Presence of coronary angioplasty implant and graft
CPT/HCPCS: 36415; 93005; 80053; 83690; 85025; 99284; 96374; 96375; 96376; 96361; J2270; J1170

== ENCOUNTER 2020-05-08 11:22 | Emergency (ER) | payer OTHER ==
[2020-05-08 11:39] VITALS: TEMP 99.4
[2020-05-08] MEDS ORDERED: SODIUM CHLORIDE 0.9% 1,000 ML IV STA (11:53)
[2020-05-08] MEDS ORDERED: HYDROmorphone 0.5 MG/0.5 ML SYRINGE IVP STA (11:53)
[2020-05-08] MEDS ORDERED: diphenhydrAMINE 50 MG/ML 1 ML VIAL IVP STA (11:53)
[2020-05-08] MEDS ORDERED: PANTOPRAZOLE 40 MG/10 ML VIAL IVP STA (11:53)
[2020-05-08] MEDS ORDERED: METOCLOPRAMIDE 5 MG/ML 2 ML VIAL IVP STA (11:53)
[2020-05-08] MEDS ORDERED: SODIUM CHLORIDE 0.9% 500 ML 500 ML IV STA (11:53)
[2020-05-08 12:28] LABS: ALT 75 U/L (4-34); African American GFR (CKD) >90 (>60 ml/min/1.73 sqM); Albumin 2.9 g/dL (3.5-5.0); Amylase 44 U/L (30-110); Anion Gap 4 mmol/L; Blood Urea Nitrogen <2 mg/dL (7-17); Calcium 8.1 mg/dL (8.4-10.2); Carbon Dioxide 27 mmol/L (22-30); Chloride 106 mmol/L (98-107); Glucose 112 mg/dL (74-99); Lipase 230 U/L (23-300); Non-African American GFR(CKD) >90 (>60 ml/min/1.73 sqM); Sodium 137 mmol/L (137-145); Total Bilirubin 1.6 mg/dL (0.2-1.3); Total Protein 6.3 g/dL (6.3-8.2)
[2020-05-08 12:32] LABS: Appearance,Urine Cloudy (Clear); Bacteria,Urine Occasional /hpf; Bilirubin,Urine Negative (Negative); Blood,Urine Negative (Negative); Color,Urine Yellow; Glucose,Urine (UA) Negative (Negative); Hyaline Casts,Urine 10 /lpf (0-2); Ketones,Urine Negative (Negative); Leukocyte Esterase,Urine Large (Negative); Mucus,Urine Few /hpf; Nitrite,Urine Negative (Negative); Protein,Urine Negative (Negative); RBC,Urine 2 /hpf (0-5); Specific Gravity,Urine 1.007 (1.001-1.035); Squamous Epithelial Cell,Urine 1 /hpf (0-4); Urobilinogen,Urine <2.0 mg/dL (<2.0); WBC,Urine 16 /hpf (0-5)
[2020-05-08 12:32] LABS: INR 1.4 (<1.2); Partial Thromboplastin Time 24.7 sec (22.0-30.0); Prothrombin Time 14.2 sec (9.0-12.0)
[2020-05-08 12:33] LABS: AST 108 U/L (14-36); Alkaline Phosphatase 102 U/L (38-126); Potassium 3.4 mmol/L (3.5-5.1)
[2020-05-08 12:39] LABS: Basophils % (A) 1 %; Eosinophils % (A) 1 %; HCT 38.4 % (34.0-46.0); HGB 13.4 gm/dL (11.4-16.0); Lymphocytes # (A) 1.2 k/uL (1.0-4.8); Lymphocytes % (A) 21 %; MCH 34.4 pg (25.0-35.0); MCHC 34.8 g/dL (31.0-37.0); MCV 98.8 fL (80.0-100.0); Monocytes # (A) 0.4 k/uL (0-1.0); Monocytes % (A) 6 %; Neutrophils # (A) 4.1 k/uL (1.3-7.7); Neutrophils % (A) 69 %; Platelet Count 165 k/uL (150-450); RBC 3.89 m/uL (3.80-5.40); RDW 13.7 % (11.5-15.5); WBC 5.9 k/uL (3.8-10.6)
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
--- NOTE | 2020-05-08 13:53 | US ---
EXAMINATION TYPE: US abdomen limited DATE OF EXAM: 05/08/2020 COMPARISON: NONE CLINICAL HISTORY: 64-year-old female Pain TECHNIQUE: Multiple sonographic images of the right upper quadrant are obtained. FINDINGS: EXAM MEASUREMENTS: Liver Length: 15 cm Gallbladder: Surgically absent CBD: .3 cm Right Kidney: 10.1 x 4.6 x 4.2 cm Pancreas: Obscured by bowel gas Liver: Heterogeneous and echogenic. There is rib and bowel gas shadowing which limits the visualizat ion. Gallbladder: wnl Evidence for sonographic Woods's sign: No CBD: wnl Right Kidney: wnl IMPRESSION: 1. Limited views of the liver due to bowel gas and rib shadowing. The visualized portions show a hete rogeneous appearance that could be technical or could reflect nonspecific hepatocellular disease. Cor relate with LFTs. 2. No gallstones or biliary ductal dilatation. 3. Correlate with workup after findings on CT of 04/29/2020. Duodenitis and/or peptic ulcer disease are differential considerations.
[2020-05-08 14:36] VITALS: BP 137/77; PULSE 83; RESP 16
== END 2020-05-08 14:34 | disposition home or self-care (01) ==
LOC: EC 11:22
DX: K25.9 Gastric ulcer, unspecified as acute or chronic, without hemorrhage or perforation (principal); B19.20 Unspecified viral hepatitis C without hepatic coma; B19.10 Unspecified viral hepatitis B without hepatic coma; R74.01 Elevation of levels of liver transaminase levels; K74.60 Unspecified cirrhosis of liver; I25.2 Old myocardial infarction; Z87.891 Personal history of nicotine dependence; Z90.49 Acquired absence of other specified parts of digestive tract; Z95.1 Presence of aortocoronary bypass graft
CPT/HCPCS: 36415; 80053; 82150; 83605; 83690; 85025; 85610; 85730; 81001; 87086; 76705; 99285; 96374; 96375 ×3; 96361; J1200; J2765; C9113; J1170